=== PATIENT | female | born 1975 | race Caucasian/White ===

== ENCOUNTER 2023-05-21 09:15 | Outpatient (CLI) | payer BC | END 2023-05-21 09:16 | disposition home or self-care (01) | LOC: CSHMAMMO 09:15 | PROVIDERS: ATTEND Obstetrics & Gynecology | DX: Z12.31 Encounter for screening mammogram for malignant neoplasm of breast (principal); Z80.3 Family history of malignant neoplasm of breast | CPT/HCPCS: 77063; 77067 ==

== ENCOUNTER 2025-01-27 07:52 | Outpatient (CLI) | payer BC | END 2025-01-27 07:53 | disposition home or self-care (01) | LOC: CSHULT 07:52 | PROVIDERS: ATTEND Nurse Practitioner Women's Health | DX: R92.8 Other abnormal and inconclusive findings on diagnostic imaging of breast (principal) ==